=== PATIENT | female | born 1945 | race Caucasian/White ===

== ENCOUNTER 2016-10-04 12:30 | Day surgery (SDC) | payer OTHER ==
[2016-10-02 14:54] VITALS: BMI 29.2
--- NOTE | 2016-10-04 14:14 | HP ---
History & Physical Update - History History: No Change - Physical Physical: No Change - Assessment Assessment: No Change - Plan Plan: No Change
[2016-10-04] MEDS ORDERED: DEXTROSE 5%-0.45% SALINE 1,000 ML IV SCH (14:15)
[2016-10-04] MEDS ORDERED: ACETAMINOPHEN 1000 MG/100 ML VIAL (NON FORMULARY) IVPB ONE (14:15)
[2016-10-04] MEDS ORDERED: ceFAZolin SODIUM 1 GM VIAL IVPB ONE (14:50)
[2016-10-04] MEDS ORDERED: ONDANSETRON 4 MG/2 ML VIAL IVPUSH PRN (16:18)
[2016-10-04] MEDS ORDERED: LORAZEPAM CARPU-JECT 2 MG/ML DISP.SYRIN IVPUSH PRN (16:18)
[2016-10-04] MEDS ORDERED: ACETAMINOPHEN INJECTION 100 ML IVPB ONE (16:42)
[2016-10-04 16:47] LABS: BASOPHIL 0.6 % (0-2.0); EOSINOPHIL 2.9 % (0-4.5); MCH 29.4 pg (25.7-33.7); MCHC 32.2 g/dl (32.0-36.0); MEAN CELL VOLUME 91.4 fl (80-96); MEAN PLT VOLUME 8.9 fl (7.5-11.1); NEUTROPHILS 43.1 % (42.8-82.8); PLATELET COUNT 211 K/MM3 (134-434); RDW 13.7 % (11.6-15.6); WHITE BLOOD COUNT 9.1 K/mm3 (4.0-10.0)
[2016-10-04 17:11] LABS: CALCIUM 9.6 mg/dL (8.5-10.1)
[2016-10-04 18:00] VITALS: TEMP 98.4
[2016-10-04 19:28] VITALS: BP 127/90; PULSE 100
[2016-10-04] MEDS ORDERED: oxyCODONE HCL 5 MG TABLET PO PRN ×2 (20:04)
--- NOTE | 2016-10-08 13:28 | PATH ---
Surgical Pathology Report Patient Name: NAZARIO FRANKLIN [facility]. Rec. #: [id number] /Age/Gender: 1945 (Age: 71) / F Account: [id number] Location: [facility] SURGICAL Taken: 10/04/2016 Received: 10/07/2016 Reported: 10/08/2016 Physicians: Yahir Santillan M.D. Specimen(s) Received ANTERIOR VAGINAL MUCOSA Clinical History Bladder prolapse incontinence Final Diagnosis ANTERIOR VAGINAL MUCOSA, EXCISION: BENIGN SQUAMOUS MUCOSA WITH VASCULAR CONGESTION. Electronically Signed García Nix M.D. Gross Description Received in formalin, labeled "anterior vaginal mucosa" is a 4.7 x 1.8 x 0.4 cm vital, irregular portion of mucosal tissue. No discrete lesions are identified. [employer] sections are submitted in one cassette. /10/07/2016 [facility]10/07/2016
--- NOTE | 2016-10-08 15:45 | OP ---
DATE OF OPERATION: 10/04/2016 PREOPERATIVE DIAGNOSIS: Mixed urinary incontinence and cystocele. POSTOPERATIVE DIAGNOSIS: Mixed urinary incontinence and cystocele. PROCEDURE: Anterior colporrhaphy and suburethral sling with cystoscopy. ANESTHESIA: General. SURGEON: Yahir Santillan MD ESTIMATED BLOOD LOSS: 100 mL. DRAINS: A Stock catheter. PREOPERATIVE INDICATIONS: The patient is a 71-year-old female with a prolapse of her bladder. She also has mixed urinary incontinence. She comes to the OR for cystocele repair and suburethral sling placement. OPERATION: The patient was brought to the OR, placed on the table in the supine position, given general anesthesia and IV antibiotics, and placed in the modified lithotomy position. The groin was prepped and draped sterilely. Timeout was performed. Stock catheter was placed. The mucosa over the cystocele was injected with Pitressin and then incised in an upside-down U fashion, and the excess mucosa was excised and sent for analysis. The vaginal mucosa bilaterally was sharply dissected off of the perivesical tissues. This was done to the arcus tendineus bilaterally. A pursestring suture of 3-0 Vicryl was placed centrally in the bladder, and then, the lateral defects were repaired using 3-0 Vicryl suture, bringing together the arcus tendineus. Cystoscopy was performed. Bilateral efflux was seen. No evidence of sutures in the bladder was seen. The vaginal mucosa was then closed with 3-0 Vicryl suture. Incision was made then over the mid-urethra after injection of Pitressin. The vaginal mucosa was sharply dissected over the periurethral tissues laterally. The bladder was emptied. A mini suburethral sling was placed. Trocar was passed from the vaginal incision under fingertip guidance toward the obturator canal. This was done bilaterally. Cystoscopy was performed. No evidence of perforation was seen. In addition, efflux continued to be seen from both sides. The sling was tightened appropriately. Excess suture was removed, and the incision was closed with 3-0 Vicryl suture. Packing was left in place along with the Stock catheter. The patient was woken up. Dena [id number]
== END 2016-10-04 20:05 | disposition home or self-care (01) ==
LOC: JASU-SURG 12:30
PROVIDERS: ATTEND Urology
PROC: 0JQC0ZZ Repair Pelvic Region Subcutaneous Tissue and Fascia, Open Approach (ICD-10-PCS; principal; 2016-10-04 14:00)
PROC: 0TSD0ZZ Reposition Urethra, Open Approach (ICD-10-PCS; 2016-10-04 14:00)
DX: N39.46 Mixed incontinence (principal); N81.10 Cystocele, unspecified
CPT/HCPCS: 36415; 80048; 85025; 88302-TC; 94760

== ENCOUNTER 2024-02-09 09:00 | Emergency (ER) | payer OTHER ==
[2024-02-09 09:24] VITALS: BMI 24.4
[2024-02-09 10:22] LABS: BASO % 0.9 % (0-2.0); EOS % 1.6 % (0-4.5); HEMATOCRIT 40.5 % (32.4-45.2); HEMOGLOBIN 13.8 GM/dL (10.7-15.3); LYMPH % 23.9 % (8-40); MEAN CELL VOLUME 88.1 fl (80-96); MEAN PLT VOLUME 8.7 fl (7.5-11.1); NEUT % 68.6 % (42.8-82.8); PLATELET COUNT 246 10^3/uL (134-434); RDW 13.8 % (11.6-15.6)
[2024-02-09 10:41] LABS: POTASSIUM 4.3 mmol/L (3.5-5.1)
[2024-02-09 10:43] LABS: CALCIUM 10.7 mg/dL (8.5-10.1)
[2024-02-09 10:44] LABS: ALBUMIN 3.7 g/dl (3.4-5.0); BLOOD UREA NITROGEN 11.2 mg/dL (7-18); MAGNESIUM 1.8 mg/dL (1.8-2.4)
[2024-02-09 10:47] LABS: CREATININE 0.8 mg/dL (0.55-1.3)
[2024-02-09 10:49] LABS: BILIRUBIN,TOTAL 0.7 mg/dL (0.2-1)
[2024-02-09 11:31] LABS: EPI CELLS 18 /uL (0-25.1); HYALINE CASTS 1 /uL (0-3.1); PH,URINE 8.5 (5.0-8.0); URINE APPEARANCE CLEAR; URINE BACTERIA 96 /uL (0-1359); URINE BILIRUBIN NEGATIVE (NEGATIVE); URINE COLOR YELLOW; URINE GLUCOSE (UA) NEGATIVE (NEGATIVE); URINE KETONE NEGATIVE (NEGATIVE); URINE LEUK ESTERASE 3+ (NEGATIVE); URINE NITRITE NEGATIVE (NEGATIVE); URINE PROTEIN NEGATIVE (NEGATIVE); URINE RBC 15 /uL (0-23.9); URINE WBC 132 /uL (0-25.8)
[2024-02-09] MEDS ORDERED: FAMOTIDINE 20 MG/50 ML IVPB 20 MG/50 ML MG IVPB ONE (11:45)
[2024-02-09] MEDS ORDERED: ACETAMINOPHEN INJECTION 100 ML IVPB ONE (11:45)
[2024-02-09] MEDS ORDERED: MAG HYDROX/AL HYDROX/SIMETH 30 ML UNIT-DOSE CUP ONE (11:45)
[2024-02-09] MEDS: ACETAMINOPHEN 1000 MG/100 ML BAG IVPB ONE (11:53)
[2024-02-09] MEDS: MAG HYDROX/AL HYDROX/SIMETH 30 ML UNIT-DOSE CUP PO ONE (11:53)
[2024-02-09] MEDS: FAMOTIDINE 20 MG/50 ML IVPB 20 MG/50 ML MG IVPB ONE (11:53)
[2024-02-09] MEDS: MECLIZINE HCL 25 MG TABLET (FP) PO ONE (11:59)
[2024-02-09] MEDS ORDERED: MECLIZINE HCL 25 MG TABLET (FP) ONE (11:59)
[2024-02-09] MEDS ORDERED: CEFTRIAXONE 1 GM/50 ML BAG ONE (12:44)
[2024-02-09] MEDS: CEFTRIAXONE 1,000 MG in DEXTROSE 5%-WATER - 50 ML IVPB ONE (12:45)
[2024-02-09 13:19] VITALS: BP 126/80; PULSE 87; RESP 17; TEMP 97.5
== END 2024-02-09 14:00 | disposition home or self-care (01) ==
LOC: JER 09:00
PROC: 3E03329 Introduction of Other Anti-infective into Peripheral Vein, Percutaneous Approach (ICD-10-PCS; principal; 2024-02-09)
PROC: 3E033GC Introduction of Other Therapeutic Substance into Peripheral Vein, Percutaneous Approach (ICD-10-PCS; 2024-02-09)
PROC: 3E033NZ Introduction of Analgesics, Hypnotics, Sedatives into Peripheral Vein, Percutaneous Approach (ICD-10-PCS; 2024-02-09)
DX: R10.13 Epigastric pain (principal); R42 Dizziness and giddiness; Z20.822 Contact with and (suspected) exposure to COVID-19
CPT/HCPCS: 0241U-QW; 36415; 70450-TC; 71045-TC-FY; 80053; 81003; 82962; 83690; 83735; 84100; 84484; 85025; 86850; 86900; 86901; 87086; 93005; 93010; 96365; 96368; 96375; 99285-25; J0131